=== PATIENT | female | born 1995 | race Hispanic/Latino ===

== ENCOUNTER 2022-08-22 14:12 | Observation (INO) | payer MEDICAID, OTHER, SELFPAY ==
[2022-08-22] MEDS ORDERED: hydrALAZINE 20 MG/ML VIAL SLOW IVP PRN ×2 (17:38→18:38)
[2022-08-22] MEDS ORDERED: Promethazine HCl 25 MG/ML VIAL IM PRN ×2 (18:38→23:38)
[2022-08-22] MEDS ORDERED: fentaNYL 50 mcg/mL 1 mL Vial SLOW IVP PRN (18:38)
[2022-08-22] MEDS ORDERED: Diphenoxylate HCl/Atropine Tablet PO PRN (18:38)
[2022-08-22] MEDS ORDERED: Acetaminophen 500 MG TAB PO PRN (18:38)
[2022-08-22] MEDS ORDERED: Tranexamic Acid 1,000 MG/10 ML VIAL IVP PRN (18:38)
[2022-08-22] MEDS ORDERED: Ondansetron PF 4 MG/2 ML Vial IVP PRN ×2 (18:38→23:38)
[2022-08-22] MEDS ORDERED: Methylergonovine 0.2 MG/ML VIAL IM PRN (18:38)
[2022-08-22] MEDS ORDERED: Carboprost 250 MCG/ML AMP IM PRN (18:38)
[2022-08-22] MEDS ORDERED: Lidocaine 1% (PF) 30 ML VIAL SC PRN (18:38)
[2022-08-22] MEDS ORDERED: Misoprostol 200 MCG TAB PR PRN (18:38)
[2022-08-22] MEDS ORDERED: NS w/ Oxytocin 30 units 500 ML IV SCH (18:45)
[2022-08-22 19:06] VITALS: BMI 34.0
[2022-08-22] MEDS ORDERED: fentaNYL 50 mcg/mL 1 mL Vial ONE (19:57)
[2022-08-22 22:32] LABS: Hemoglobin 13.2 g/dL (12.0-15.5); Mean Corpuscular HGB CONC 33.8 g/dL (32.0-36.0); Mean Corpuscular Hemoglobin 30.7 pg (27.0-33.0); Mean Corpuscular Volume 90.7 fl (81.6-98.3); Mean Platelet Volume 12.1 fl (7.4-10.4); Platelet Count 289 10x3/uL (150-450); RBC Distribution Width 14.5 % (11.5-14.5); White Blood Cell (WBC) Count 9.5 10x3/uL (3.5-10.5)
[2022-08-22 22:36] LABS: HBSAg Index 0.23 S/CO (0-0.99); Hep B Surf Ag - L&D Non-Reactive S/CO (NonReactive)
[2022-08-22 23:04] LABS: Syphilis Antibody Nonreactive (Nonreactive); Syphilis Antibody Index 0.05 S/CO (<1.00 Non-Reactive)
[2022-08-22] MEDS ORDERED: fentaNYL/Ropivacaine Epidural 100 ML ONE (23:13)
[2022-08-22] MEDS ORDERED: Lactated Ringer's 500 ML IV PRN (23:38)
[2022-08-22] MEDS ORDERED: ePHEDrine Sulfate 50 MG/10 ML VIAL SLOW IVP PRN (23:38)
[2022-08-22] MEDS ORDERED: Moisturizing Cream (Eucerin) 113 GM JAR TOP PRN (23:38)
[2022-08-22] MEDS ORDERED: diphenhydrAMINE 50 MG/ML VIAL IVP PRN (23:38)
[2022-08-22] MEDS ORDERED: Acetaminophen 325 MG TAB PO PRN (23:38)
[2022-08-22] MEDS ORDERED: Naloxone HCl 0.4 mg/ml Vial IVP PRN ×2 (23:38)
[2022-08-22] MEDS ORDERED: Communication Order-Pharmacy FS SCH (23:45)
[2022-08-22] MEDS ORDERED: fentaNYL 2 mcg/Ropivacaine 0.2% Epidural 100 ML CADD EPIDURAL SCH (23:45)
[2022-08-23] MEDS: Lactated Ringer's 1,000 ML IV SCH ×2 (07:12→08:10)
[2022-08-23] MEDS ORDERED: Bupivacaine 0.25% HCL 30 ML VIAL ONE (08:00)
[2022-08-23] MEDS ORDERED: CEFAZOLIN 2 GM VIAL ONE (08:03)
[2022-08-23] MEDS ORDERED: Famotidine/PF 20 mg/2ml Vial ONE (08:04)
[2022-08-23] MEDS ORDERED: Ketorolac Tromethamine 30 MG/ML VIAL ONE (08:15)
[2022-08-23] MEDS ORDERED: Metoclopramide HCl 10 MG/2 ML VIAL ONE (08:15)
[2022-08-23] MEDS ORDERED: Oxytocin 10 UNITS/ML VIAL ONE ×2 (08:15→09:16)
[2022-08-23] MEDS ORDERED: Ondansetron PF 4 MG/2 ML Vial ONE (08:15)
[2022-08-23] MEDS ORDERED: Dexamethasone 4 mg/ml Vial ONE (08:15)
[2022-08-23] MEDS ORDERED: Lidocaine 2% MPF 10 ML AMP (For Epidural Use) ONE (08:17)
[2022-08-23] MEDS ORDERED: Morphine PF 10 MG/10 ML VIAL ONE (08:17)
[2022-08-23] MEDS ORDERED: Azithromycin 500 MG VIAL ONE (09:00)
[2022-08-23] MEDS ORDERED: Fentanyl 100 MCG/2 ML VIAL SLOW IVP PRN (09:38)
[2022-08-23] MEDS ORDERED: Ondansetron HCl/PF 4 MG/2 ML Vial IVP PRN (09:38)
[2022-08-23] MEDS ORDERED: Moisturizing Cream (Eucerin) 113 GM JAR TOP PRN (09:38)
[2022-08-23] MEDS ORDERED: Ondansetron PF 4 MG/2 ML Vial IVP PRN ×2 (09:38→12:58)
[2022-08-23] MEDS ORDERED: Promethazine HCl 25 MG SUPP PR PRN (09:38)
[2022-08-23] MEDS ORDERED: Meperidine HCl/PF 25 MG/ML VIAL SLOW IVP PRN (09:38)
[2022-08-23] MEDS ORDERED: Promethazine HCl 25 MG/ML VIAL IM PRN ×2 (09:38→12:58)
[2022-08-23] MEDS ORDERED: Naloxone HCl 0.4 mg/ml Vial IV PRN (09:38)
[2022-08-23] MEDS ORDERED: diphenhydrAMINE 50 MG/ML VIAL IVP PRN (09:38)
[2022-08-23] MEDS ORDERED: Naloxone HCl 0.4 mg/ml Vial IVP PRN ×2 (09:38)
[2022-08-23] MEDS ORDERED: Communication Order-Pharmacy FS SCH (09:45)
[2022-08-23] MEDS ORDERED: Meperidine HCl/PF 25 MG/ML VIAL ONE (12:45)
[2022-08-23] MEDS ORDERED: diphenhydrAMINE 25 MG CAP PO PRN (12:58)
[2022-08-23] MEDS ORDERED: Bisacodyl 10 MG SUPP PR PRN (12:58)
[2022-08-23] MEDS ORDERED: Boostrix 0.5 ML (Tdap) VIAL (>/=7 yrs of age) IM ONE (12:58)
[2022-08-23] MEDS ORDERED: hydrALAZINE 20 MG/ML VIAL SLOW IVP PRN (12:58)
[2022-08-23] MEDS ORDERED: HYDROcodone/Acetaminophen 5/325 mg Tablet PO PRN (12:58)
[2022-08-23] MEDS ORDERED: Lanolin Ointment 7 GM TUBE TOP PRN (12:58)
[2022-08-23] MEDS ORDERED: Ketorolac Tromethamine 30 MG/ML VIAL IVP PRN (14:00)
[2022-08-23] MEDS: Ketorolac Tromethamine 30 MG/ML VIAL IVP SCH ×2 (15:08→21:32)
[2022-08-23] MEDS: Docusate 100 MG CAP PO SCH (21:32)
[2022-08-23] MEDS: Ferrous Sulfate 325 MG TAB PO SCH (21:34)
[2022-08-24 02:58] LABS: Hemoglobin 10.6 g/dL (12.0-15.5); Mean Corpuscular HGB CONC 33.3 g/dL (32.0-36.0); Mean Corpuscular Hemoglobin 30.3 pg (27.0-33.0); Mean Corpuscular Volume 90.9 fl (81.6-98.3); Mean Platelet Volume 11.8 fl (7.4-10.4); Platelet Count 260 10x3/uL (150-450); RBC Distribution Width 14.2 % (11.5-14.5); White Blood Cell (WBC) Count 17.3 10x3/uL (3.5-10.5)
[2022-08-24] MEDS: Ketorolac Tromethamine 30 MG/ML VIAL IVP SCH ×2 (03:34→07:58)
[2022-08-24] MEDS: Docusate 100 MG CAP PO SCH ×2 (08:01→21:05)
[2022-08-24] MEDS: Prenatal Vitamin 1 TAB PO SCH (08:01)
[2022-08-24] MEDS: Ferrous Sulfate 325 MG TAB PO SCH ×2 (08:02→23:42)
[2022-08-24] MEDS: Ibuprofen 800 MG TAB PO SCH ×2 (13:07→21:05)
[2022-08-24] MEDS: HYDROcodone/Acetaminophen 5/325 mg Tablet PO PRN ×2 (16:40→21:06)
[2022-08-25] MEDS: HYDROcodone/Acetaminophen 5/325 mg Tablet PO PRN (02:20)
[2022-08-25] MEDS: Simethicone Chewable 80 MG TAB PO PRN ×2 (03:43→08:17)
[2022-08-25] MEDS: Ibuprofen 800 MG TAB PO SCH ×2 (05:44→13:12)
[2022-08-25] MEDS: Prenatal Vitamin 1 TAB PO SCH (08:15)
[2022-08-25] MEDS: Docusate 100 MG CAP PO SCH (08:15)
[2022-08-25] MEDS: Ferrous Sulfate 325 MG TAB PO SCH (08:17)
[2022-08-25 09:52] VITALS: TEMP 98.3
[2022-08-25 12:07] VITALS: BP 106/73
== END 2022-08-25 17:00 | disposition home or self-care (01) ==
LOC: CSHLD/OP 14:12 → OBSVTOIN 21:33 → CSHLD 21:33 → INTOOBSV 21:33 → CSHPP 08-23 13:10
PROVIDERS: ADMIT Family Medicine; ATTEND Family Medicine
PROC: 10D00Z1 Extraction of Products of Conception, Low, Open Approach (ICD-10-PCS; principal; 2022-08-23)
DX: O34.211 Maternal care for low transverse scar from previous cesarean delivery (principal); Z37.0 Single live birth; O61.0 Failed medical induction of labor; O32.8XX0 Maternal care for other malpresentation of fetus, not applicable or unspecified; Z3A.39 39 weeks gestation of pregnancy; Z98.890 Other specified postprocedural states; Z79.899 Other long term (current) drug therapy
CPT/HCPCS: 36415; 51702; 85027; 86780; 86850; 86900; 86901; 87340; 96374; 96375; 96376; 99285; G0378; J1100; J1885; J2175; J2274; J2405; J2590; J2765; J3010; J7120; S0020; S0028